=== PATIENT | male | born 1945 | race Caucasian/White ===

== ENCOUNTER 2016-11-01 15:12 | Emergency (ER) | payer BC, MEDICARE ==
[~2016-11-01] VITALS: Ht 180.3 cm; Wt 90.7 kg
[2016-11-01 18:36] VITALS: BP 123/69
== END 2016-11-01 19:58 | disposition home or self-care (01) ==
LOC: EDBD 15:19 → ER 15:19
DX: S06.0X9A Concussion with loss of consciousness of unspecified duration, initial encounter (principal); S16.1XXA Strain of muscle, fascia and tendon at neck level, initial encounter; S51.012A Laceration without foreign body of left elbow, initial encounter; S00.03XA Contusion of scalp, initial encounter; I48.91 Unspecified atrial fibrillation; V43.52XA Car driver injured in collision with other type car in traffic accident, initial encounter; Y93.89 Activity, other specified; Y99.8 Other external cause status; Y92.89 Other specified places as the place of occurrence of the external cause
CPT/HCPCS: 70450; 72125; 93005

== ENCOUNTER 2018-02-22 07:12 | Inpatient (IN) | payer BC, MEDICARE ==
[~2018-02-22] VITALS: Ht 180.3 cm; Wt 95.5 kg
[~2018-02-22 07:12] MED LIST: ACET-1304 PO; ESOM40CA39 PO; NEBI5TAB2 PO; SIMV-8 PO
[2018-02-22] MEDS ORDERED: LIDOCAINE 2%HCL (LOCAL ANESTH.) INJ 20ML MDV ONE (07:20)
[2018-02-22] MEDS ORDERED: fentaNYL CITRATE 100 MCG/2 ML VL ONE (08:13)
[2018-02-22] MEDS ORDERED: MIDAZOLAM HCL 1MG/1ML-2 ML VIAL ONE (08:14)
[2018-02-22] MEDS ORDERED: HYDROmorphone HCL 2 MG/ML VL ONE (09:31)
[2018-02-22] MEDS ORDERED: ASPirin 81 mg TAB ONE (11:04)
[2018-02-22] MEDS ORDERED: ASPirin 81 mg TAB PO ONE (11:15)
[2018-02-22] MEDS ORDERED: HYDROcodone-ACET 5/325MG TAB PO PRN (11:45)
[2018-02-22] MEDS ORDERED: ONDANSETRON HCL 4 MG/2 ML VIAL IV PRN (11:45)
[2018-02-22] MEDS ORDERED: NITROGLYCERIN 0.4 MG SL TAB SL PRN (11:45)
[2018-02-22] MEDS ORDERED: ACETAMINOPHEN 500 MG TAB PO PRN (11:45)
[2018-02-22] MEDS ORDERED: MORPHINE SULFATE 4 MG/ML SYR/VIAL IV PRN (11:45)
[2018-02-22] MEDS ORDERED: ENOXAPARIN SOD 30 MG/0.3 ML SYRINGE SC ONE (13:00)
[2018-02-22] MEDS ORDERED: SIMV-13 PO (14:33)
[2018-02-22 14:59] VITALS: BP 124/79
[2018-02-22] MEDS: SODIUM CHLOR 0.9% PF (SALINE LOCK) 10ML VIAL/SYR IV SCH ×2 (16:35→22:09)
[2018-02-22 22:00] VITALS: BP 116/64
[2018-02-22] MEDS ORDERED: ATORVASTATIN 20 MG TAB PO SCH (22:00)
[2018-02-22] MEDS: PANTOPRAZOLE 40 MG TAB PO SCH (22:00)
[2018-02-23 05:54] VITALS: BP 106/66
[2018-02-23] MEDS: SODIUM CHLOR 0.9% PF (SALINE LOCK) 10ML VIAL/SYR IV SCH (06:55)
[2018-02-23 09:00] VITALS: BP 101/68
[2018-02-23] MEDS: PANTOPRAZOLE 40 MG TAB PO SCH (09:58)
[2018-02-23] MEDS ORDERED: NEBIVOLOL HCL 5 MG PO SCH (10:00)
[2018-02-23] MEDS ORDERED: PATIENTS OWN MEDICATION (Esomeprazole Magnesium Trihydr (Nexium) 1 CAP) PO SCH (10:00)
[2018-02-23] MEDS ORDERED: ASPirin 81 mg TAB PO SCH (10:00)
[2018-02-23 13:00] VITALS: BP 114/63
== END 2018-02-23 13:05 | disposition home or self-care (01) | DRG 274 ==
LOC: CATH 07:12 → TELE-CENTR 07:13
PROVIDERS: ADMIT Specialist; ATTEND Specialist
PROC: 02583ZZ Destruction of Conduction Mechanism, Percutaneous Approach (ICD-10-PCS; principal; 2018-02-22)
PROC: 02K83ZZ Map Conduction Mechanism, Percutaneous Approach (ICD-10-PCS; 2018-02-22)
DX: I47.2 Ventricular tachycardia (principal); E78.5 Hyperlipidemia, unspecified; J45.909 Unspecified asthma, uncomplicated
CPT/HCPCS: 93654; 99152; J2250; J2405